=== PATIENT | female | born 2000 | race Caucasian/White ===

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

== ENCOUNTER 2022-04-08 18:14 | Emergency (ER) | payer OTHER ==
[~2022-04-08] VITALS: Wt 113.4 kg
[~2022-04-08 18:14] MED LIST changes: +CEFUROXIME AXE500 MG PO
== END 2022-04-08 20:23 | disposition home or self-care (01) ==
LOC: ED 18:14
DX: O26.891 Other specified pregnancy related conditions, first trimester (principal); Z20.822 Contact with and (suspected) exposure to COVID-19; J06.9 Acute upper respiratory infection, unspecified; Z3A.09 9 weeks gestation of pregnancy

== ENCOUNTER 2022-09-18 08:11 | Emergency (ER) | payer OTHER ==
[~2022-09-18] VITALS: Wt 117.5 kg
[2022-09-18] MEDS ORDERED: LEVEMIR FL100 UNIT/1 SC (08:23)
[2022-09-18] MEDS ORDERED: SERTRALINE HYDR50 MG PO (08:24)
[2022-09-18] MEDS ORDERED: [UNRECOGNIZED DRUG - OTHER] (08:24)
[2022-09-18 09:01] LABS: BASO # 0.1 10*3/uL (0.0-0.1); BASO % 0.5 % (0.0-1.0); EOS % 0.3 % (1.0-4.0); LYMPH # 1.8 10*3/uL (1.3-4.4); LYMPH % 16.7 % (27.0-41.0); MEAN CELL VOLUME 81.8 fl (81.0-99.0); MEAN CORPUSCULAR HGB 27.3 pg (27.0-31.0); MEAN CORPUSCULAR HGB CONC 33.3 g/dl (33.0-37.0); MEAN PLATELET VOLUME 11.5 fl (9.6-12.3); MONO # 0.7 10*3/uL (0.1-1.0); MONO % 6.5 % (3.0-9.0); NEUT # 8.3 10*3/uL (2.3-7.9); NEUT % 75.5 % (47.0-73.0); PLATELET COUNT AUTOMATED 251 10*3/uL (130-400); RED CELL DISTRI WIDTH 14.5 % (0-14.5)
[2022-09-18 09:11] LABS: ACT PARTIAL THROMBO TIME 25.2 SECONDS (20.0-32.1)
[2022-09-18 09:16] LABS: ALKALINE PHOSPHATASE 106 U/L (45-117); BUN 3 mg/dl (7-24); CHLORIDE 105 mmol/L (98-107); CREATININE 0.58 mg/dL (0.55-1.02); POTASSIUM 3.5 mmol/L (3.5-5.1); SGOT/AST 7 IU/L (3-35); SGPT/ALT 13 U/L (12-78); SODIUM 136 mmol/L (136-145); TOTAL PROTEIN 7.1 gm/dL (6.4-8.2)
[2022-09-18 09:20] LABS: BILIRUBIN Negative (Negative); BLOOD Negative (Negative); CLARITY Clear (Clear); COLOR Yellow (Yellow); GLUCOSE Negative (Negative); KETONE Negative (Negative); LEUKO ESTERASE Negative (Negative); NITRITE Negative (Negative); SPECIFIC GRAVITY <= 1.005 (1.001-1.030); UROBILINOGEN 0.2 E.U./dl (0.0-1.0)
[2022-09-18 09:36] LABS: RBC 0-2 rbc/hpf (0-2); WBC 0-2 wbc/hpf (0-5)
== END 2022-09-18 10:10 | disposition home or self-care (01) ==
LOC: ED 08:11
PROVIDERS: Emergency Medicine
DX: O26.893 Other specified pregnancy related conditions, third trimester (principal); R51.9 Headache, unspecified; Z3A.32 32 weeks gestation of pregnancy; Z79.899 Other long term (current) drug therapy

== ENCOUNTER 2023-05-02 12:36 | Emergency (ER) | payer OTHER ==
[~2023-05-02] VITALS: Ht 162.5 cm; Wt 112.5 kg
[~2023-05-02 12:36] MED LIST changes: +LEVEMIR FL100 UNIT/1 SC; +SERTRALINE HYDR50 MG PO; +[UNRECOGNIZED DRUG - OTHER]
[2023-05-02 14:40] LABS: BILIRUBIN Negative (Negative); BLOOD Negative (Negative); CLARITY Clear (Clear); COLOR Yellow (Yellow); GLUCOSE Negative (Negative); KETONE Negative (Negative); LEUKO ESTERASE 1+ (Negative); NITRITE Negative (Negative); PH 5.5 (4.5-8.0); UROBILINOGEN 0.2 E.U./dl (0.0-1.0)
[2023-05-02 14:58] LABS: BACTERIA 2+; RBC 0-2 rbc/hpf (0-2)
[2023-05-02 15:23] LABS: BASO # 0.1 10*3/uL (0.0-0.1); BASO % 0.6 % (0.0-1.0); EOS % 0.2 % (1.0-4.0); HEMATOCRIT 38.8 % (37.0-47.0); LYMPH # 2.5 10*3/uL (1.3-4.4); LYMPH % 30.5 % (27.0-41.0); MEAN CORPUSCULAR HGB 21.7 pg (27.0-31.0); MEAN CORPUSCULAR HGB CONC 30.9 g/dl (33.0-37.0); MEAN PLATELET VOLUME 10.3 fl (9.6-12.3); MONO # 0.4 10*3/uL (0.1-1.0); MONO % 4.4 % (3.0-9.0); NEUT # 5.3 10*3/uL (2.3-7.9); NEUT % 64.1 % (47.0-73.0); PLATELET COUNT AUTOMATED 437 10*3/uL (130-400); RED BLOOD COUNT 5.54 10*6/uL (4.10-5.10); RED CELL DISTRI WIDTH 17.5 % (0-14.5); WHITE BLOOD COUNT 8.3 10*3/uL (4.8-10.8)
[2023-05-02 15:45] LABS: ALKALINE PHOSPHATASE 96 U/L (46-116); BUN 8 mg/dl (9-23); CHLORIDE 101 mmol/L (98-107); LIPASE 32 U/L (12-53); POTASSIUM 4.1 mmol/L (3.4-5.1); SGPT/ALT 49 U/L (10-49); TOTAL PROTEIN 7.7 gm/dL (6.0-8.0)
[2023-05-02 15:49] LABS: BETA-HCG, QUANT < 3.0 mIU/mL (3-10)
[2023-05-02] MEDS ORDERED: ONDANSETRON4 MG SL (16:35)
== END 2023-05-02 16:48 | disposition home or self-care (01) ==
LOC: ED 12:36
PROVIDERS: Emergency Medicine
DX: R10.13 Epigastric pain (principal); R07.89 Other chest pain; R11.0 Nausea

== ENCOUNTER 2024-11-30 14:43 | Emergency (ER) | payer OTHER ==
[~2024-11-30] VITALS: Ht 162.5 cm; Wt 115.2 kg
[~2024-11-30 14:43] MED LIST changes: +ONDANSETRON4 MG SL
[2024-11-30] MEDS ORDERED: AZITHROMYCIN 250 MG TAB PO ONE (16:00)
[2024-11-30] MEDS ORDERED: ZITHROMAX250 MG PO (16:00)
[2024-11-30] MEDS ORDERED: predniSONE 20 MG TAB PO ONE (16:00)
[2024-11-30] MEDS ORDERED: PREDNISONE50 MG PO (16:00)
== END 2024-11-30 16:34 | disposition home or self-care (01) ==
LOC: ED 14:43
DX: J01.90 Acute sinusitis, unspecified (principal)

== ENCOUNTER 2025-03-31 16:13 | Emergency (ER) | payer OTHER ==
[~2025-03-31] VITALS: Wt 108.9 kg
[~2025-03-31 16:13] MED LIST changes: +PREDNISONE50 MG PO; +ZITHROMAX250 MG PO
[2025-03-31] MEDS ORDERED: IBUPROFEN 800 MG TAB PO ONE (17:00)
== END 2025-03-31 18:09 | disposition home or self-care (01) ==
LOC: ED 16:13
DX: S70.01XA Contusion of right hip, initial encounter (principal); Z79.899 Other long term (current) drug therapy; V89.2XXA Person injured in unspecified motor-vehicle accident, traffic, initial encounter; Y93.89 Activity, other specified; Y92.488 Other paved roadways as the place of occurrence of the external cause; Y99.8 Other external cause status

== ENCOUNTER 2025-07-08 20:23 | Emergency (ER) | payer OTHER ==
[~2025-07-08] VITALS: Ht 162.6 cm; Wt 107.5 kg
[2025-07-08 20:58] LABS: BASO # 0.1 10*3/uL (0.0-0.1); BASO % 0.5 % (0.0-1.0); EOS # 0.0 10*3/uL (0.0-0.4); EOS % 0.1 % (1.0-4.0); MEAN CELL VOLUME 84.6 fl (81.0-99.0); MEAN CORPUSCULAR HGB 27.8 pg (27.0-31.0); MEAN PLATELET VOLUME 11.1 fl (9.6-12.3); MONO # 0.8 10*3/uL (0.1-1.0); MONO % 7.3 % (3.0-9.0); NEUT # 7.1 10*3/uL (2.3-7.9); NEUT % 62.1 % (47.0-73.0); NUCLEATED RED BLOOD CELL 0.0 % (0.0-0.0); NUCLEATED RED BLOOD CELL 0.0 10*3/uL (0.0-0.0); PLATELET COUNT AUTOMATED 325 10*3/uL (130-400); RED CELL DISTRI WIDTH 13.5 % (0-14.5)
[2025-07-08 21:22] LABS: BILIRUBIN Negative (Negative); BLOOD Negative (Negative); CLARITY Clear (Clear); COLOR Yellow (Yellow); KETONE Negative (Negative); LEUKO ESTERASE Negative (Negative); NITRITE Negative (Negative); PH 6.0 (4.5-8.0); SPECIFIC GRAVITY 1.015 (1.001-1.030); UROBILINOGEN 0.2 E.U./dl (0.0-1.0)
[2025-07-08 21:28] LABS: URINE AMPHETAMINES Negative (1000ng/ml); URINE BARBITURATES Negative (200ng/ml); URINE BENZODIAZEPINES Negative (200ng/ml); URINE CANNABINOIDS (THC) Positive (50ng/ml); URINE COCAINE Negative (300ng/ml); URINE METHADONE Negative (300ng/ml); URINE OPIATES Negative (300ng/ml); URINE PHENCYCLIDINE Negative (25ng/ml)
[2025-07-08 21:31] LABS: BACTERIA TRACE
[2025-07-08 21:32] LABS: BUN 7 mg/dl (9-23); SGPT/ALT 19 U/L (5-49)
[2025-07-08 21:34] LABS: ETHYL ALCOHOL < 3.0 mg/dl (<3)
== END 2025-07-09 16:40 ==
LOC: ED 20:23
PROVIDERS: Internal Medicine
DX: O99.341 Other mental disorders complicating pregnancy, first trimester (principal); F43.21 Adjustment disorder with depressed mood; O10.911 Unspecified pre-existing hypertension complicating pregnancy, first trimester; F41.9 Anxiety disorder, unspecified; F32.A Depression, unspecified; Z79.4 Long term (current) use of insulin; Z79.899 Other long term (current) drug therapy; Z3A.01 Less than 8 weeks gestation of pregnancy

== ENCOUNTER → 2025-08-04 | Outpatient (CLI) | payer OTHER | END | disposition home or self-care (01) | LOC: LAB 12:38 | PROVIDERS: ATTEND Family Medicine | DX: O46.91 Antepartum hemorrhage, unspecified, first trimester (principal); O26.891 Other specified pregnancy related conditions, first trimester; R10.9 Unspecified abdominal pain; Z3A.00 Weeks of gestation of pregnancy not specified ==

== ENCOUNTER → 2025-11-03 | Outpatient (CLI) | payer OTHER ==
[2025-11-03 16:41] LABS: BASO # 0.0 10*3/uL (0.0-0.1); BASO % 0.3 % (0.0-1.0); EOS # 0.0 10*3/uL (0.0-0.4); EOS % 0.2 % (1.0-4.0); MEAN CELL VOLUME 85.1 fl (81.0-99.0); MEAN CORPUSCULAR HGB 28.8 pg (27.0-31.0); MEAN PLATELET VOLUME 10.6 fl (9.6-12.3); MONO # 0.4 10*3/uL (0.1-1.0); MONO % 3.5 % (3.0-9.0); NEUT # 8.6 10*3/uL (2.3-7.9); NEUT % 77.1 % (47.0-73.0); NUCLEATED RED BLOOD CELL 0.0 % (0.0-0.0); NUCLEATED RED BLOOD CELL 0.0 10*3/uL (0.0-0.0); PLATELET COUNT AUTOMATED 246 10*3/uL (130-400); RED CELL DISTRI WIDTH 13.5 % (0-14.5)
[2025-11-03 17:28] LABS: VITAMIN D, 25-HYDROXY 28.3 ng/mL (30-100)
[2025-11-03 17:29] LABS: BUN < 5 mg/dl (9-23); FREE T4 1.03 ng/dl (0.89-1.76); SGPT/ALT 9 U/L (5-49)
[2025-11-04 06:07] LABS: CYTOMEGALOVIRUS AB, IGG 5.00 U/mL (0.00-0.59)
[2025-11-04 08:07] LABS: LDH 145 IU/L (119-226)
== END | disposition home or self-care (01) ==
LOC: LAB 16:11
PROVIDERS: ATTEND Obstetrics & Gynecology
DX: O09.891 Supervision of other high risk pregnancies, first trimester (principal); O24.410 Gestational diabetes mellitus in pregnancy, diet controlled; O10.912 Unspecified pre-existing hypertension complicating pregnancy, second trimester; O99.340 Other mental disorders complicating pregnancy, unspecified trimester; E61.1 Iron deficiency; E63.9 Nutritional deficiency, unspecified; F41.9 Anxiety disorder, unspecified; F32.A Depression, unspecified; Z36.9 Encounter for antenatal screening, unspecified; Z82.79 Family history of other congenital malformations, deformations and chromosomal abnormalities; Z68.41 Body mass index [BMI] 40.0-44.9, adult; Z98.891 History of uterine scar from previous surgery; Z57.9 Occupational exposure to unspecified risk factor; Z3A.00 Weeks of gestation of pregnancy not specified